=== PATIENT | male | born 1960 | race Caucasian/White ===

== ENCOUNTER 2023-03-14 09:18 | Outpatient (CLI) | payer OTHER, SELFPAY ==
--- NOTE | 2023-03-14 10:29 | W.ANESCHARGE ---
Anesthesia Charges Start Date/Time Anesthesia Start Date: 03/14/23 Anesthesia Start Time: 10:00 Stop Date/Time Anesthesia Stop Date: 03/14/23 Anesthesia Stop Time: 10:27
--- NOTE | 2023-03-14 11:47 | W.ANESCHARGE ---
Anesthesia Charges Start Date/Time Anesthesia Start Date: 03/14/23 Anesthesia Start Time: 10:00 Stop Date/Time Anesthesia Stop Date: 03/14/23 Anesthesia Stop Time: 10:27
== END 2023-03-14 09:19 | disposition home or self-care (01) ==
LOC: OP CLINIC 09:19
PROVIDERS: PCP Family Medicine; Visit Provider Internal Medicine Gastroenterology
DX: Z12.11 Encounter for screening for malignant neoplasm of colon (principal); K63.5 Polyp of colon; K62.1 Rectal polyp; K57.30 Diverticulosis of large intestine without perforation or abscess without bleeding; Z80.0 Family history of malignant neoplasm of digestive organs; Z86.010 Personal history of colon polyps
CPT/HCPCS: 00811; 45380; 88305; J2704